=== PATIENT | male | born 1950 | race Caucasian/White ===

== ENCOUNTER 2019-04-12 04:32 | Emergency (ER) | payer MEDICARE ==
[2019-04-12] MEDS ORDERED: Acetaminophen/oxyCODONE 325-5 MG Tab PO ONE (04:33)
[2019-04-12] MEDS ORDERED: Morphine 2 MG/ML Syringe IM ONE (04:37)
[2019-04-12] MEDS ORDERED: Ondansetron 4 MG Tab.DIS PO ONE (04:38)
--- NOTE | 2019-04-12 04:48 | EDM.PDOC ---
ED HPI GENERAL MEDICAL PROBLEM - General Chief Complaint: Back Pain or Injury Stated Complaint: "I think I broke some ribs" Time Seen by Provider: 04/12/19 04:34 Source of Information: Reports: Patient History Limitations: Reports: No Limitations - History of Present Illness INITIAL COMMENTS - FREE TEXT/NARRATIVE: This patient is a 68 year old male that presents to the ER. Patient is with his . Patient reports that he was sleeping n bed when he rolled and fell out of bed. Patient reports that there is a dresser to the side of his bed. Patient reports rolling out of bed and hitting the left side of his chest on the dresser. Patient reports that he then proceeded to fall to the floor. Patient reports having left sided "rib pain". Patient reports that as soon as it occurred, he came to the ER. Patient reports that it hurts to take big deep breaths, walk, or movement. Patient reports he is short of breath. Patient reports that he has a history of COPD and chronically feels short of breath. Onset: Today Onset Date: 04/12/19 Onset Time: 03:00 Location: Reports: Chest Quality: Reports: Sharp Severity: Moderate Improves with: Reports: Immobilization Worsens with: Reports: Breathing, Movement Associated Symptoms: Reports: Shortness of Breath. Denies: Confusion, Cough, cough w sputum, Diaphoresis, Fever/Chills, Headaches, Loss of Appetite, Malaise , Nausea/Vomiting, Rash, Seizure, Syncope, Weakness Left Middle Trunk Pain Score (Numeric/FACES): 10 - Related Data Allergies Allergy/AdvReac Type Severity Reaction Status Date / Time No Known Allergies Allergy Verified 04/12/19 04:40 Home Meds: Home Meds Carvedilol 25 mg PO BID 04/12/19 [History] Cholecalciferol (Vitamin D3) [Vitamin D3] 5,000 units PO DAILY 04/12/19 [History ] Cyanocobalamin (Vitamin B-12) [Vitamin B12] 5,000 mcg PO DAILY 04/12/19 [History ] Dofetilide 500 mcg PO BID 04/12/19 [History] Furosemide 20 mg PO DAILY 04/12/19 [History] Glucosamine/D3/Boswellia Lola [Osteo Bi-Flex Caplet] 1 tab PO DAILY 04/12/19 [ History] Losartan [Cozaar] 25 mg PO DAILY 04/12/19 [History] Potassium Chloride 20 meq PO DAILY 04/12/19 [History] Ranitidine HCl [Ranitidine] 300 mg PO DAILY 04/12/19 [History] Simvastatin 20 mg PO DAILY 04/12/19 [History] Spironolactone [Aldactone] 25 mg PO DAILY 04/12/19 [History] Vitamin B Complex [B Complex] 1 tab PO DAILY 04/12/19 [History] Review of Systems - Review of Systems Review Of Systems: See Below Constitutional: Reports: No Symptoms Eyes: Reports: No Symptoms Ears: Reports: No Symptoms Nose: Reports: No Symptoms Mouth/Throat: Reports: No Symptoms Respiratory: Reports: Shortness of Breath, Other ("left rib pain") Cardiovascular: Reports: No Symptoms. Denies: Edema, Irregular Heart Rate, Lightheadedness, Palpitations, Syncope GI/Abdominal: Reports: No Symptoms Genitourinary: Reports: No Symptoms Musculoskeletal: Reports: No Symptoms Skin: Reports: No Symptoms Neurological: Reports: No Symptoms Psychiatric: Reports: No Symptoms ED EXAM, GENERAL - Physical Exam Exam: See Below Exam Limited By: No Limitations General Appearance: Alert, WD/WN, No Apparent Distress, Obese, Other ( chronically ill appearing) Eye Exam: Bilateral Eye: EOMI, Normal Inspection, PERRL Ears: Normal External Exam, Normal Canal, Hearing Grossly Normal, Normal TMs Ear Exam: Bilateral Ear: Auricle Normal, Canal Normal, TM normal Nose: Normal Inspection, Normal Mucosa, No Blood Throat/Mouth: Normal Inspection, Normal Lips, Normal Teeth, Normal Gums, Normal Oropharynx, Normal Voice, No Airway Compromise Head: Atraumatic, Normocephalic Neck: Normal Inspection, Supple, Non-Tender, Full Range of Motion Respiratory/Chest: No Respiratory Distress, Rhonchi (moderate to severe throughout. Consistent with his COPD.), Splinting (left anterior chest), Other ( Chest anterior/lateral/posterior tenderness. ) Cardiovascular: Normal Peripheral Pulses, Regular Rate, Rhythm, No Edema, No Gallop, No JVD, No Murmur, No Rub Peripheral Pulses: 2+: Radial (L), Radial (R), Posterior Tibial (L), Posterior Tibial (R) GI/Abdominal: Normal Bowel Sounds, Soft, Non-Tender, Pelvis Stable (Male) Exam: Deferred Rectal (Males) Exam: Deferred Back Exam: Normal Inspection, Full Range of Motion. No: CVA Tenderness (L), CVA Tenderness (R), Decreased Range of Motion, Muscle Spasm, Paraspinal Tenderness, Vertebral Tenderness Extremities: Normal Inspection, Normal Range of Motion, Non-Tender, No Pedal Edema, Normal Capillary Refill Neurological: Alert, Oriented, Normal Cognition Psychiatric: Normal Affect, Normal Mood Skin Exam: Warm, Dry, Intact, Normal Color, No Rash Lymphatic: No Adenopathy Course - Vital Signs Last Recorded V/S: Last Vital Signs Temp 97.7 F 04/12/19 04:34 Pulse 80 04/12/19 04:34 Resp 18 04/12/19 04:34 BP 142/92 H 04/12/19 04:34 Pulse Ox 94 L 04/12/19 04:34 - Orders/Labs/Meds Orders: Active Orders 24 hr Category Date Time Status RT Aerosol Therapy [RC] ASDIRECTED Care 04/12/19 04:53 Active Ribs 2V w Chest Lt [CR] Stat Exams 04/12/19 04:39 Taken Meds: Medications Discontinued Medications Generic Name Dose Route Start Last Admin Trade Name Freq PRN Reason Stop Dose Admin Albuterol/Ipratropium 3 ml 04/12/19 04:53 04/12/19 05:03 Duoneb 3.0-0.5 Mg/3 Ml NEB 04/12/19 04:54 3 ml ONETIME ONE Administration Morphine Sulfate 4 mg 04/12/19 04:37 04/12/19 04:46 Morphine IM 04/12/19 04:38 4 mg ONETIME ONE Administration Ondansetron HCl 4 mg 04/12/19 04:38 04/12/19 04:44 Zofran Odt PO 04/12/19 04:39 4 mg ONETIME ONE Administration Oxycodone/Acetaminophen 2 packet 04/12/19 06:05 04/12/19 06:31 Take Home: Acetaminophen/Oxycodon, 2 Tab Pack PO 04/12/19 06:06 2 packet ONETIME ONE Administration - Radiology Interpretation Free Text/Narrative:: CXR: Discussed with radiologist: 9th rib nondisplaced fx. No hemothorax, no pneumothorax. - Re-Assessments/Exams Free Text/Narrative Re-Assessment/Exam: 04/12/19 06:12 I discussed with the patient his COPD with his rib fracture and how this complicates his health. Explained that this puts him at a high risk for PE, DVT , pneumonia. Also explained his risk for bleeding in the chest due to injury. Patient oxygen saturation is 94%, lungs Rhonchi throughout, no neb machine while here. He lives in [place], here for on Sunday. I would like to admit this patient to observation and ensure we control his pain, ensure no delayed bleeding, or any other complications with this patient. Can also give breathing treatments, and ensure ambulation and good breathing. The patient and report they are driving back home to [place] Sunday, have to take son there too. They are driving, I explained the risks with long car rides and clots and pneumonia, and even . They report they will get out of the vehicle every couple of hours. I again tried talking the patient into being admitted to help decrease risks of , pneumonia, COPD exacerbation, clots, or other complications. The patient is aware of all risks and refuses admission. He is aware that , clots, COPD exacerbation, pneumonia may result. The patient still refuses admission. He is educated to return if he changes his mind about admission, increased shortness of breath, fever, , or any concerns. He is educated that while riding with his driving that if he develops any concerns to tube puller, call 911, or present to the nearest ER. The patient is encouraged to tube puller at least every 2 hours to get out of the vehicle, walk around, deep breath. We will give the patient lee hose to assist in clot prevention. I will give the patient pain medication to take with him and all script. Patient has refused admission against my advice and is aware of all the risks associated with possible complications. He is fully alert and oriented. He is of sound body and mind. Departure - Departure Time of Disposition: 06:06 Disposition: Home, Self-Care 01 Condition: Poor Clinical Impression: Closed rib fracture Qualifiers: Encounter type: initial encounter Rib fracture type: single rib Laterality: left Qualified Code(s): S22.32XA - Fracture of one rib, left side, initial encounter for closed fracture - Discharge Information *PRESCRIPTION DRUG MONITORING PROGRAM REVIEWED*: No *COPY OF PRESCRIPTION DRUG MONITORING REPORT IN PATIENT MARISOL: No Instructions: Rib Fracture, Pain Medicine Instructions, [id number], Rib Fracture, [id number] Referrals: PCP,None [Primary Care Provider] - Forms: ED Department Discharge Additional Instructions: PLEASE RETURN IF YOU HAVE INCREASED SHORTNESS OF BREATH, INCREASED PAIN, CHEST PAIN, OR IF YOU CHANGE YOUR MIND ABOUT ADMISSION If while driving you have shortness of breath, fever, increased pain, chest pain or any concerns: Check mile marker (location) and CALL 911 Followup with your primary care provider as soon as possible Incentive Spirometer every 1-2 hours while awake to help prevent pneumonia Lee hose as needed to help prevent blood clots Percocet 5/325mg 1-2 pills every 4-6 hours as needed for pain #32 no refill: Take with Food: NO DRIVING! Take a stool softner Increase water intake - My Orders Last 24 Hours: My Active Orders 04/12/19 04:39 Ribs 2V w Chest Lt [CR] Stat 04/12/19 04:53 RT Aerosol Therapy [RC] ASDIRECTED - Assessment/Plan Last 24 Hours: My Active Orders 04/12/19 04:39 Ribs 2V w Chest Lt [CR] Stat 04/12/19 04:53 RT Aerosol Therapy [RC] ASDIRECTED Plan: PLEASE SEE RN NOTE FOR PFSH.
[2019-04-12] MEDS ORDERED: Albuterol/Ipratropium 3.0-0.5 MG/3 ML Neb Soln NEB ONE (04:53)
[2019-04-12] MEDS ORDERED: Take Home: Acetaminophen/oxyCODONE 325-5 MG, 2 Tab Pack PO ONE (06:05)
== END 2019-04-12 06:33 | disposition home or self-care (01) ==
LOC: CC.ED 04:32
DX: S22.32XA Fracture of one rib, left side, initial encounter for closed fracture (principal); Z79.899 Other long term (current) drug therapy; W06.XXXA Fall from bed, initial encounter
CPT/HCPCS: 71101-LT; 94640; 96372; 99283-25; 99284; A9270-GY; J2270; J7620-GY